=== PATIENT | female | born 1990 | race Caucasian/White ===

== ENCOUNTER 2024-03-04 08:56 | Outpatient (CLI) | payer MEDICAID, SELFPAY ==
[2024-03-04 18:21] LABS: Basophils # 0.1 K/mm3 (0-0.2); Eosinophils # 0.1 K/mm3 (0.0-0.4); Eosinophils % 1.5 % (0.1-12.0); Hematocrit 42.2 % (37.0-47.0); Hemoglobin 14.4 g/dL (12.2-16.2); Lymphocytes # 1.8 K/mm3 (0.7-4.5); Lymphocytes % 18.8 % (10-50); Mean Corpuscular HGB Conc 34.2 g/dL (31.8-35.4); Mean Corpuscular Hemoglobin 32.4 pg (27.0-31.2); Mean Corpuscular Volume 94.8 fl (81-99); Mean Platelet Volume 9.5 fl (7.4-10.4); Monocytes # 0.4 K/mm3 (0.1-1.0); Neutrophils % 74.8 % (37.0-80.0); Platelet Count 186 K/mm3 (142-424); Red Blood Count 4.46 M/mm3 (4.20-5.40); Red Cell Distribution Width 12.9 % (11.5-17.5); White Blood Count 9.4 K/mm3 (4.8-10.8)
[2024-03-04 18:27] LABS: Albumin Level 3.9 g/dl (3.5-5.0); Chloride 106 mmol/L (98-107); Sodium 139 mmol/L (136-145)
[2024-03-04 18:30] LABS: Alanine Aminotransferase 33 U/L (12-78); Albumin/Globulin Ratio 1.1 (1.1-1.8); Alkaline Phosphatase 47 U/L (38-126); Aspartate Amino Transferase 27 U/L (14-36); Bilirubin,Total 0.5 mg/dl (0.2-1.3); Blood Urea Nitrogen 8 mg/dl (7-17); Carbon Dioxide 23 mmol/L (22.0-30.0); Cholesterol 192 mg/dl (140-200); Estimated Glomerular Filt Rate 71 ml/min (>60); GFR (African American) 86 ML/MIN (>60); Globulin 3.4 g/dL (1.3-3.2); Total Protein,Serum 7.3 g/dl (6.3-8.2); Triglycerides 174 mg/dl (30-150); VLDL Cholesterol 35 mg/dL (0-40)
[2024-03-04 18:31] LABS: Calcium 9.1 mg/dl (8.4-10.2); Chol/HDL Ratio 4.3 (1-3.5); Glucose 86 mg/dl (74-100); HDL Cholesterol 45 mg/dl (40-60)
[2024-03-04 18:42] LABS: Direct LDL Cholesterol 111.47 mg/dL (100-129)
[2024-03-04 18:46] LABS: 25-OH Vitamin D, Total 22.6 ng/mL (30-100)
[2024-03-04 19:00] LABS: Thyroid Stimulating Hormone 1.57 uIU/mL (0.465-4.68)
== END 2024-03-04 23:59 | disposition home or self-care (01) ==
LOC: LAB.DROPOF 03-07 08:56
PROVIDERS: PCP Family Medicine; Visit Provider Family Medicine
DX: F41.1 Generalized anxiety disorder (principal)
CPT/HCPCS: 80050; 80053; 80061; 82306; 83036; 84443; 85025

== ENCOUNTER 2024-07-29 15:00 | Outpatient (CLI) | payer MEDICAID, SELFPAY ==
[2024-07-29 18:50] LABS: Erythrocyte Sedimentation Rate 21 mm/hr (0-20)
[2024-07-29 19:18] LABS: C-Reactive Protein 8.6 mg/L (0-4)
[2024-07-29 20:36] LABS: Uric Acid 4.4 mg/dl (2.5-6.2)
[2024-07-31 07:09] LABS: RA Latex Turbid. <10.0 IU/mL (<14.0)
[2024-08-01 14:28] LABS: Anti-Centromere B Antibodies <0.2 AI (0.0-0.9); Anti-DNA (DS) Ab Qn 2 IU/mL (0-9); Anti-Jo-1 <0.2 AI (0.0-0.9); Anti-Smith Antibody <0.2 AI (0.0-0.9); Antichromatin Antibodies <0.2 AI (0.0-0.9); Antinuclear Antibodies, IFA Positive (.); Antiscleroderma-70 Antibodies <0.2 AI (0.0-0.9); RNP Antibodies <0.2 AI (0.0-0.9); Sjogren's Anti-SS-A 0.2 AI (0.0-0.9); Sjogren's Anti-SS-B <0.2 AI (0.0-0.9)
== END 2024-07-29 23:59 | disposition home or self-care (01) ==
LOC: LAB.DROPOF 08-01 12:17
PROVIDERS: PCP Nurse Practitioner Family; Visit Provider Nurse Practitioner Family
DX: L98.9 Disorder of the skin and subcutaneous tissue, unspecified (principal)
CPT/HCPCS: 84550; 85651; 86038; 86140; 86225; 86235; 86431; 87529

== ENCOUNTER 2025-04-11 12:04 | Outpatient (CLI) | payer MEDICAID, SELFPAY ==
[2025-04-11 14:58] LABS: Microscopic, Urine URINE MICROSCOPIC (MICROSCOPIC)
[2025-04-11 15:05] LABS: Hematocrit 38.2 % (37.0-47.0); Hemoglobin 12.7 g/dL (12.2-16.2); Immature Granulocytes % 0.3 %; Mean Corpuscular HGB Conc 33.2 g/dL (31.8-35.4); Mean Corpuscular Hemoglobin 30.2 pg (27.0-31.2); Mean Corpuscular Volume 90.7 fl (81-99); Nucleated Red Blood Cells % 0 %; Platelet Count 227 K/mm3 (142-424); Red Blood Count 4.21 M/mm3 (4.20-5.40); Red Cell Distribution Width-SD 41.6 fL; White Blood Count 7.8 K/mm3 (4.8-10.8)
[2025-04-11 16:13] LABS: Albumin Level 4.1 g/dl (3.5-5.0); Chloride 103 mmol/L (98-107); Potassium 4.2 mmoL/L (3.5-5.1); Sodium 140 mmol/L (136-145)
[2025-04-11 16:16] LABS: Alanine Aminotransferase 31 U/L (12-78); Albumin/Globulin Ratio 1.2 (1.1-1.8); Alkaline Phosphatase 61 U/L (38-126); Anion Gap 17.2 mEq/L (5-15); Aspartate Amino Transferase 31 U/L (14-36); Bilirubin,Total 0.5 mg/dl (0.2-1.3); Blood Urea Nitrogen 7 mg/dl (7-17); Carbon Dioxide 24 mmol/L (22.0-30.0); Creatinine,Serum 0.80 mg/dl (0.52-1.04); Estimated Glomerular Filt Rate 81 ml/min (>60); GFR (African American) 98 ML/MIN (>60); Globulin 3.5 g/dL (1.3-3.2); Phosphorous 3.2 mg/dl (2.5-4.5); Total Protein,Serum 7.6 g/dl (6.3-8.2)
[2025-04-11 16:17] LABS: Calcium 9.1 mg/dl (8.4-10.2); Glucose 80 mg/dl (74-100); Magnesium 2.2 mg/dl (1.6-2.3)
[2025-04-11 16:33] LABS: Free T4 (Free Thyroxine) 1.02 ng/dl (0.78-2.19)
[2025-04-11 16:45] LABS: Thyroid Stimulating Hormone 3.04 uIU/mL (0.465-4.68)
[2025-04-11 16:54] LABS: Bilirubin,Urine Negative (Negative); Color,Urine YELLOW (Yellow); Glucose,Urine (UA) Negative (Negative); Ketones,Urine Negative (Negative); Leukocyte Esterase,Urine Negative (Negative); PH,Urine 6.0 (5.0-8.5); Protein,Urine Negative (Negative); Specific Gravity, Urine 1.020 (1.005-1.030); Urobilinogen,Urine 1.0 EU/dl (0.2)
[2025-04-11 17:08] LABS: Hepatitis C Ab Qual. W/ RFX NEGATIVE (Negative)
[2025-04-11 17:19] LABS: Bacteria,Urine 2+ /lpf; Mucus,Urine 1+ /lpf
[2025-04-11 18:01] LABS: Vitamin B12 286 pg/mL (239-931)
[2025-04-11 19:00] LABS: Folate 2.93 ng/mL
[2025-04-12 09:12] LABS: Hepatitis B Surface Antigen Negative (Negative)
== END 2025-04-11 23:59 | disposition home or self-care (01) ==
LOC: LAB.DROPOF 04-12 10:00
PROVIDERS: PCP Nurse Practitioner Family; Visit Provider Nurse Practitioner
DX: G44.52 New daily persistent headache (NDPH) (principal); Z11.59 Encounter for screening for other viral diseases; H53.9 Unspecified visual disturbance; H02.409 Unspecified ptosis of unspecified eyelid; R29.810 Facial weakness; R68.89 Other general symptoms and signs; R76.89 Other specified abnormal immunological findings in serum; B00.1 Herpesviral vesicular dermatitis
CPT/HCPCS: 80053; 81001; 82607; 82746; 83735; 84100; 84439; 84443; 85025; 86803; 87086; 87340; 87389